=== PATIENT | female | born 1965 | race Two or more races ===

== ENCOUNTER 2016-10-29 04:45 | Emergency (ER) | payer MEDICAID ==
[~2016-10-29] VITALS: Ht 175.3 cm; Wt 99.8 kg
[~2016-10-29 04:45] MED LIST: HYDR-2595; IBUP800T24 PO; LORA2TAB89 PO
[2016-10-29 09:01] VITALS: BP 134/79
[2016-10-29] MEDS ORDERED: HYDROcodone-ACET 5/325MG TAB PO ONE (09:45)
== END 2016-10-29 10:40 | disposition home or self-care (01) ==
LOC: EDBD 04:45 → ER 04:45
DX: S09.90XA Unspecified injury of head, initial encounter (principal); F17.210 Nicotine dependence, cigarettes, uncomplicated; I10 Essential (primary) hypertension; M54.2 Cervicalgia; W20.8XXA Other cause of strike by thrown, projected or falling object, initial encounter; Y93.89 Activity, other specified; Y99.8 Other external cause status; Y92.89 Other specified places as the place of occurrence of the external cause; Z59.0 Homelessness
CPT/HCPCS: 70450

== ENCOUNTER 2017-08-18 15:41 | Inpatient (IN) | payer MEDICAID ==
[~2017-08-18] VITALS: Ht 160 cm; Wt 64.2 kg
[2017-08-18 16:30] LABS: Basophils # (auto) 0.1 uL; Basophils % (auto) 0.5 % (0.0-2.0); Eosinophils # (auto) 0.2 uL; Eosinophils % (auto) 1.5 % (0.0-7.0); Hematocrit 43.5 % (36.0-46.0); Hemoglobin 15.1 g/dL (12.2-16.2); Lymphocytes # (auto) 1.3 uL; Lymphocytes % (auto) 12.1 % (10.0-50.0); Mean Corpuscular Hemoglobin 31.4 pg (28.0-32.0); Mean Corpuscular Hgb Conc. 34.7 g/dL (32.0-36.0); Mean Corpuscular Volume 90.5 fL (80.0-100.0); Monocytes # (auto) 0.7 uL; Monocytes % (auto) 6.3 % (0.0-12.0); Neutrophils # (auto) 8.3 uL; Neutrophils % (auto) 79.6 % (37.0-80.0); Nucleated Red Blood Cells % 0.1 %; Platelet Count (auto) 197 10^3/uL (140-450); Red Blood Cells 4.81 10^6/uL (4.0-5.20); Red Cell Distribution Width 13.3 % (11.8-14.3); White Blood Cell 10.5 10^3/uL (4.4-10.8)
[2017-08-18 16:46] LABS: Alanine Aminotransferase 21 U/L (13-56); Albumin 3.6 g/dL (3.4-5.0); Anion Gap 3 (5-15); Aspartate Aminotransferase 15 U/L (15-37); BUN/Creatinine Ratio 23.4; Blood Urea Nitrogen 11 mg/dL (7-18); Calcium 8.4 mg/dL (8.5-10.1); Carbon Dioxide 28 mmol/L (21-32); Chloride 111 mmol/L (98-107); GFR African American 178 mL/min; GFR Non-African American 147 mL/min; Glucose 97 mg/dL (74-106); Potassium 3.7 mmol/L (3.5-5.1); Sodium 142 mmol/L (136-145)
[2017-08-18 16:51] LABS: Alkaline Phosphatase 91 U/L (45-117); Bilirubin, Total 0.4 mg/dL (0.2-1.0); Total Protein 7.5 g/dL (6.4-8.2)
[2017-08-18] MEDS ORDERED: SODIUM CHLORIDE 0.9% 1,000 ML IV ONE (18:44)
[2017-08-18] MEDS ORDERED: LEVOFLOXACIN 500MG 100 ML IV ONE (18:45)
[2017-08-18] MEDS ORDERED: ALBUTEROL SULF 2.5 MG/0.5ML(0.5%) NEB SOLN HHN ONE (18:45)
[2017-08-18] MEDS ORDERED: IPRATROPIUM BROM 0.5 MG/2.5ML INH SOL HHN ONE (18:45)
[2017-08-18] MEDS ORDERED: methylPREDNISolone SOD SUCC 125 MG/2 ML VL IV ONE (18:45)
[2017-08-18] MEDS ORDERED: MORPHINE SULFATE 4 MG/ML SYR/VIAL IV PRN (22:00)
[2017-08-18] MEDS ORDERED: ACETAMINOPHEN 500 MG TAB PO PRN (22:00)
[2017-08-18] MEDS ORDERED: TEMAZEPAM 15 MG CAP PO PRN (22:00)
[2017-08-18] MEDS: HYDROcodone-ACET 5/325MG TAB PO PRN (22:40)
[2017-08-19 03:41] VITALS: BP 153/73
[2017-08-19 04:04] VITALS: BP 153/73
[2017-08-19 05:00] VITALS: BP 137/61
[2017-08-19] MEDS: HYDROcodone-ACET 5/325MG TAB PO PRN ×2 (05:05→16:51)
[2017-08-19 05:48] LABS: Basophils # (auto) 0 uL; Basophils % (auto) 0.1 % (0.0-2.0); Eosinophils # (auto) 0 uL; Hemoglobin 13.1 g/dL (12.2-16.2); Lymphocytes # (auto) 0.6 uL; Lymphocytes % (auto) 7.3 % (10.0-50.0); Mean Corpuscular Hemoglobin 31.1 pg (28.0-32.0); Mean Corpuscular Hgb Conc. 34.4 g/dL (32.0-36.0); Mean Corpuscular Volume 90.5 fL (80.0-100.0); Monocytes # (auto) 0.1 uL; Neutrophils # (auto) 7.6 uL; Neutrophils % (auto) 91.6 % (37.0-80.0); Platelet Count (auto) 181 10^3/uL (140-450); Red Cell Distribution Width 13.6 % (11.8-14.3); White Blood Cell 8.3 10^3/uL (4.4-10.8)
[2017-08-19 05:56] LABS: BUN/Creatinine Ratio 23.3; Calcium 8.7 mg/dL (8.5-10.1); Potassium 3.7 mmol/L (3.5-5.1)
[2017-08-19 09:00] VITALS: BP 118/67
[2017-08-19] MEDS: ALBUTEROL SULF 2.5 MG/0.5ML(0.5%) NEB SOLN NEB SCH ×4 (09:03→21:08)
[2017-08-19] MEDS: IPRATROPIUM BROM 0.5 MG/2.5ML INH SOL NEB SCH ×4 (09:03→21:07)
[2017-08-19] MEDS: cefTRIAXone 1GM/10ml IVPUSH 10 ML IV SCH (10:12)
[2017-08-19] MEDS: AZITHROMYCIN 500MG/ 250ML 250 ML IV SCH (10:48)
[2017-08-19 12:48] LABS: Urine Bacteria NONE SEEN /hpf (None Seen); Urine Blood Negative /uL (Negative); Urine Specific Gravity 1.035 (1.001-1.035); Urine WBC <1 /hpf (0 - 5)
[2017-08-19 13:00] VITALS: BP 158/77
[2017-08-19] MEDS ORDERED: ALBUAER3 IN (16:57)
[2017-08-19] MEDS ORDERED: LEVO500T21 PO (16:57)
[2017-08-19 22:00] VITALS: BP 124/64
[2017-08-20] MEDS: ALBUTEROL SULF 2.5 MG/0.5ML(0.5%) NEB SOLN NEB SCH ×2 (01:01→07:29)
[2017-08-20] MEDS: IPRATROPIUM BROM 0.5 MG/2.5ML INH SOL NEB SCH ×2 (01:01→07:29)
[2017-08-20] MEDS: HYDROcodone-ACET 5/325MG TAB PO PRN ×2 (01:23→08:48)
[2017-08-20 05:03] VITALS: BP 140/74
[2017-08-20 07:30] VITALS: BP 155/98
[2017-08-20 09:00] VITALS: BP 155/98
[2017-08-20] MEDS: cefTRIAXone 1GM/10ml IVPUSH 10 ML IV SCH (09:49)
[2017-08-20] MEDS: AZITHROMYCIN 500MG/ 250ML 250 ML IV SCH (09:50)
[2017-08-20 12:55] VITALS: BP 143/90
== END 2017-08-20 13:36 | disposition home or self-care (01) | DRG 139 ==
LOC: ER 15:41 → TELE 15:42 → TELE-WESTW 23:42
PROVIDERS: ADMIT Nurse Practitioner Family; ATTEND Internal Medicine
DX: J18.9 Pneumonia, unspecified organism (principal); I10 Essential (primary) hypertension; F41.9 Anxiety disorder, unspecified; F17.210 Nicotine dependence, cigarettes, uncomplicated; F32.9 Major depressive disorder, single episode, unspecified; Z59.0 Homelessness; Z81.8 Family history of other mental and behavioral disorders; Z83.3 Family history of diabetes mellitus; Z90.710 Acquired absence of both cervix and uterus
CPT/HCPCS: 36415; 71046; 80048; 80053; 81001; 83605; 83735; 84484; 85025; 87040; 87070; 87205; 87804; 93005; 94640; 94761; 96361; 96365; 96375; J1956

== ENCOUNTER 2018-11-09 18:09 | Emergency (ER) | payer MEDICAID ==
[~2018-11-09] VITALS: Ht 160 cm; Wt 90.7 kg
[~2018-11-09 18:09] MED LIST changes: +ALBUAER3 IN; +LEVO500T21 PO
[2018-11-09 18:24] VITALS: BP 138/75
== END 2018-11-09 20:36 | disposition left against medical advice (07) ==
LOC: ER 18:13
DX: R07.9 Chest pain, unspecified (principal); R06.02 Shortness of breath; Z53.21 Procedure and treatment not carried out due to patient leaving prior to being seen by health care provider
CPT/HCPCS: 71046; 93005

== ENCOUNTER 2019-01-14 23:01 | Emergency (ER) | payer MEDICAID ==
[~2019-01-14] VITALS: Ht 160 cm; Wt 99.8 kg
[2019-01-14 23:40] LABS: Basophils # (auto) 0.1 uL; Basophils % (auto) 1.5 % (0.0-2.0); Eosinophils # (auto) 0.1 uL; Eosinophils % (auto) 1.5 % (0.0-7.0); Hematocrit 45.7 % (36.0-46.0); Lymphocytes # (auto) 2.3 uL; Lymphocytes % (auto) 29.8 % (10.0-50.0); Mean Corpuscular Hemoglobin 32.1 pg (28.0-32.0); Mean Corpuscular Hgb Conc. 34.9 g/dL (32.0-36.0); Mean Corpuscular Volume 92.1 fL (80.0-100.0); Monocytes # (auto) 0.5 uL; Monocytes % (auto) 7.2 % (0.0-12.0); Neutrophils # (auto) 4.6 uL; Platelet Count (auto) 165 10^3/uL (140-450); Red Blood Cells 4.96 10^6/uL (4.0-5.20); Red Cell Distribution Width 12.4 % (11.8-14.3); White Blood Cell 7.7 10^3/uL (4.4-10.8)
[2019-01-14 23:51] LABS: Potassium 3.1 mmol/L (3.5-5.1)
[2019-01-14 23:55] LABS: Albumin 3.5 g/dL (3.4-5.0); BUN/Creatinine Ratio 21.7; Calcium 8.5 mg/dL (8.5-10.1)
[2019-01-14 23:57] LABS: Bilirubin, Total 0.7 mg/dL (0.2-1.0); Total Protein 7.2 g/dL (6.4-8.2)
[2019-01-15] MEDS ORDERED: SODIUM CHLORIDE 0.9% 500 ML IV ONE (02:00)
[2019-01-15] MEDS ORDERED: ONDANSETRON HCL 4 MG/2 ML VIAL IV ONE (02:00)
[2019-01-15] MEDS ORDERED: MORPHINE SULFATE 4 MG/ML SYR/VIAL IV ONE (02:00)
[2019-01-15 02:39] LABS: Urine WBC None Seen /hpf (0 - 5)
[2019-01-15 02:39] LABS: Magnesium 2.5 mg/dL (1.6-2.6)
[2019-01-15 02:53] LABS: Urine Bacteria NONE SEEN /hpf (None Seen); Urine Blood Negative /uL (Negative); Urine Specific Gravity 1.002 (1.001-1.035)
[2019-01-15 02:56] LABS: INR 1.09 (0.9-1.15); Partial Thromboplastin Time 27.9 sec (23.64-32.05)
[2019-01-15 03:09] LABS: Lactic Acid w/Reflex 2.5 mmol/L (0.4-2.0)
[2019-01-15] MEDS ORDERED: VANCOMYCIN PER PHARMACY 1,000 MG IV SCH (03:30)
[2019-01-15] MEDS ORDERED: SODIUM CHLORIDE 0.9% 1,000 ML IV ONE ×2 (04:00→05:00)
[2019-01-15] MEDS ORDERED: FOLIC ACID 1 MG, MULTIPLE VITAMIN 10 ML, MAGNESIUM SULF SDV 50% 8 MEQ, THIAMINE INJ 100... INJ SCH ×5 (04:00)
[2019-01-15] MEDS: VANCOMYCIN 1GM/250ML 250 ML IV SCH ×2 (04:30→04:56)
[2019-01-15] MEDS ORDERED: PIPERACILLIN-TAZOB 3.375GM 100 ML IV SCH (06:00)
[2019-01-15] MEDS ORDERED: MORPHINE SULF INJ 2 MG/ML SYRINGE 1ML IV ONE (07:30)
[2019-01-15 07:46] VITALS: BP 137/80
== END 2019-01-15 09:19 | disposition home or self-care (01) ==
LOC: ER 23:04
DX: A41.9 Sepsis, unspecified organism (principal); F10.129 Alcohol abuse with intoxication, unspecified; K70.31 Alcoholic cirrhosis of liver with ascites; K72.90 Hepatic failure, unspecified without coma; I10 Essential (primary) hypertension; F17.210 Nicotine dependence, cigarettes, uncomplicated; Z90.710 Acquired absence of both cervix and uterus; Z59.0 Homelessness; Z79.899 Other long term (current) drug therapy
CPT/HCPCS: 36415; 36600; 71045; 74176; 76705; 80053; 80320; 81001; 82140; 82150; 82805; 83605; 83690; 83735; 83880; 85025; 85384; 85610; 85730; 86850; 86900; 86901; 87040; 87086; 96361; 96365; 96366; 96368; 96375; 96376; 99284; J2270; J2405; J2543; J3370; J3411; J3475; J7030; J7040